=== PATIENT | male | born 2000 | race Caucasian/White ===

== ENCOUNTER 2020-08-10 06:29 | Emergency (ER) | payer MEDICAID ==
[2020-08-10] MEDS ORDERED: METHYLPREDNISOLONE ACETATE INJ 80 MG/1 ML VIAL IM ONE (09:00)
--- NOTE | 2020-08-10 09:07 | ER Document Report ---
ED General - General Chief Complaint: Hives Stated Complaint: HIVES ALL OVER BODY Time Seen by Provider: 08/10/20 08:49 - HPI Notes: Patient presents with a weeklong history of hives on his distal extremities involving primarily his forearms distal lower extremities and ankles and some around the belt line of his pants. This is somewhat pruritic. He said he had a similar episode a couple of years ago and was seen at another facility. They told him it was some sort of allergic reaction and treated him with antihistamines and steroids. He tolerated that well but did not seek any follow-up care shows never had an allergy referral or any allergy testing. He denies any exposures or new soaps cosmetics detergents clothing animals plant materials or any other contact dermatitis causing agents. He has had no recent change in his medications. He denies any other symptoms. He was just concerned because his ankles have become a little bit swollen and painful as well as itchy. He has to stand 12 hours a day and wear boots for his job so it somewhat uncomfortable. - Related Data Allergies/Adverse Reactions: No Known Allergies Allergy (Unverified 08/10/20 08:46) Home Medications: hydroxyine, clonidine, adderall Past Medical History - General Information source: Patient - Social History Smoking Status: Current Every Day Smoker Family History: Reviewed & Not Pertinent - Medical History Medical History: Other Notes: Past medical history as documented in electronic health record is reviewed. Past Surgical History: Reports: Hx Orthopedic Surgery Review of Systems - Review of Systems Notes: All other systems reviewed are negative or noncontributory except noted the present illness. Physical Exam - Vital signs Vitals: Temp Pulse Resp BP Pulse Ox 98.2 F 115 H 17 150/89 H 99 08/10/20 06:36 08/10/20 06:36 08/10/20 06:36 08/10/20 06:36 08/10/20 06:36 - Notes Notes: General: Well-developed well-nourished male no acute distress. Vital signs and nursing documentation are reviewed. skin: The patient has some confluent urticarial lesions that involve his distal extremities both upper and lower, his palms, and along his beltline. These are erythematous slightly raised sharply demarginated and somewhat asymmetrical. There is no evidence of any vesicle or bulla formation and no evidence of secondary infection. He has diffuse noncystic acne primarily involving his face neck and back. ENT: No angioedema or stridor. Lungs: Clear to auscultation. Course - Re-evaluation Re-evalutation: 08/10/20 09:06 Discussed symptomatic management with the patient. He prefers Depo-Medrol to a Medrol Dosepak so we will give him an injection of 80 mg of Depo-Medrol IM. Along with his hydroxyzine which he uses on a as needed basis and when to have him start cetirizine 10 mg a day. His problems are bothersome so I will also submit a prescription for some betamethasone cream for him to use twice a day. He should follow-up with his primary care provider as needed if unimproved. - Vital Signs Vital signs: Temp Pulse Resp BP Pulse Ox 98.2 F 115 H 17 150/89 H 99 08/10/20 06:36 08/10/20 06:36 08/10/20 06:36 08/10/20 06:36 08/10/20 06:36 - Laboratory Results Critical Laboratory Results Reviewed: No Critical Results - Radiology Results Critical Radiology Results Reviewed: No Critical Results Discharge - Discharge Clinical Impression: Urticaria Condition: Good Disposition: HOME, SELF-CARE Instructions: Acute Urticaria ([facility]) Additional Instructions: Continue using your hydroxyzine. You can use cetirizine 10 mg once a day. This is available [id number] very inexpensively without a prescription. A prescription for betamethasone cream has been sent to your pharmacy. Please pick this up and use it twice a day on your palms. Use a small amount rub in well. Follow-up with your primary care provider as needed if unimproved. Return to the emergency department if any concerning symptoms develop. Prescriptions: Betamethasone Valerate [Valisone 0.1 % Cream 15 gm] 15 applic TP BID #1 tube
[2020-08-10 09:44] VITALS: BP 139/85
== END 2020-08-10 09:44 | disposition home or self-care (01) ==
LOC: ER 06:29
DX: L50.9 Urticaria, unspecified (principal); F17.200 Nicotine dependence, unspecified, uncomplicated; Z79.899 Other long term (current) drug therapy
CPT/HCPCS: 99284; 96372; J1040